=== PATIENT | male | born 1945 | race Caucasian/White ===

== ENCOUNTER → 2016-08-17 | Outpatient (CLI) | payer OTHER ==
[~2016-08-17] MED LIST: ACET-1325; ASPI81TA82 PO; CHOL1000 PO; DABI150C PO; FAMO20TA11 PO; LEVO-14 PO; LISI5TAB PO; METO25TA56 PO; MULT-506 PO; OMEG10007 PO; PRDFOPS; PRED1SUS3 OPR; REGADENOSON 0.4 MG/5 ML SYR ONE; ROSU40TA PO; TOBR0.3S4
--- NOTE | 2016-08-17 13:04 | DIAGNOSTIC IMAGING REPORT ---
ULTRASOUND OF THE ABDOMINAL AORTA CLINICAL HISTORY: Atherosclerosis. COMPARISON STUDY: Abdominal CT dated 01/22/2014. TECHNIQUE: Multiple brunson scale, color Doppler, and spectral Doppler sonograms of the abdominal aorta and iliac arteries are performed. Images are reviewed in the transverse and longitudinal planes. FINDINGS: There is advanced echogenic shadowing atherosclerotic calcification and irregularity noted throughout the abdominal aorta. The abdominal aorta is ectatic. The proximal abdominal aorta measures 1.8 x 2.2 cm (AP times transverse), the mid abdominal aorta measures 3.0 x 2.9 cm, and the distal abdominal aorta measures 2.4 x 2.1 cm. The right common iliac artery measures up to 1.4 cm and the left common iliac artery measures up to 1.3 cm. Normal flow and spectral Doppler waveforms are seen within the aorta with velocities measuring up to 82 cm/s. IMPRESSION: There is advanced atherosclerotic calcification and ectasia of the abdominal aorta. See above. Electronically signed by: Eduin Dennis M.D. 08/17/2016 1:02 PM Dictated Date/Time: 08/17/2016 12:59 PM
--- NOTE | 2016-08-18 02:28 | MYOCARDIAL PERFUSION SCAN ---
ORDERING PHYSICIAN: Dr. Jacoby Rollins. PRIMARY CARE PHYSICIAN: Dr. Jamison Zhang. TIME: 1910. PROCEDURE: 1. Myocardial perfusion study performed in multiple views/images. 2. Lexiscan pharmacologic stress ECG. INDICATIONS: CAD. CONSENT: Informed written consent was obtained. PROCEDURAL DETAILS: For the stress portion of the study, Lexiscan 0.4 mg was intravenously administered over 10-15 seconds, followed by saline flush. This was followed with 31.2 mCi of technetium-99m Cardiolite injected intravenously at 11:40 a.m. on 08/17/2016. Thirty minutes following the injection, imaging of the heart was performed in multiple projections. For the rest portion of the study, 10.6 mCi of technetium-99m Cardiolite was injected intravenously at 10:00 a.m. on the same day. One hour following the injection, imaging of the heart was performed in the same projections. LEXISCAN ECG STRESS: Baseline ECG demonstrated atrial fibrillation at 75 beats per minute. Lexiscan ECG demonstrated no significant ST changes. No significant pause. No chest pain reported. Maximum heart rate was 100 beats per minute, representing 66% maximum predicted heart rate. Resting blood pressure was 118/85 mmHg. Maximum blood pressure was 132/81 mmHg. FINDINGS: Rotating raw imaging demonstrated attenuation artifact from the patient's left arm. He was unable to raise his arms above his head. This appeared to affect the lateral wall and basal segments of the heart. There was mild motion artifact in both the stress and rest imaging. Heart size appeared normal. Myocardial perfusion demonstrated a small area of mildly reduced uptake involving the mid to distal anterior and mid to distal anteroseptal wall segments, which was reversible compared to rest imaging. There was a small area of mildly reduced uptake in the distal lateral wall and distal anterolateral wall segments, which was also reversible in rest imaging. There was a small area of mildly reduced uptake involving the inferior wall and inferolateral wall segments from base to apex. This was fixed at the base but otherwise appeared reversible. Ejection fraction was 51%. Wall motion demonstrated akinesis of the inferior/inferolateral basal segments. IMPRESSION: 1. Abnormal myocardial perfusion study suggesting a small area of ischemia involving the mid to distal anterior and anteroseptal freed, small area of the distal lateral and anterolateral wall, and mid to apical inferior and inferolateral wall segments. 2. Small basal inferior/inferolateral infarct suggested. 3. Low normal left ventricular systolic function. Estimated EF 51%. 4. Wall motion suggested akinesis of the inferior and inferolateral basal segment. 5. No chest pain reported. 6. Nondiagnostic Lexiscan ECG.
== END | disposition home or self-care (01) ==
LOC: C.NUCL 08:57
PROVIDERS: ATTEND Internal Medicine Clinical Cardiac Electrophysiology
DX: I25.10 Atherosclerotic heart disease of native coronary artery without angina pectoris (principal); I77.811 Abdominal aortic ectasia

== ENCOUNTER → 2016-10-18 | Outpatient (CLI) | payer OTHER ==
[~2016-10-18] MED LIST changes: -REGADENOSON 0.4 MG/5 ML SYR ONE
[2016-10-18 12:43] LABS: BLOOD UREA NITROGEN 18 mg/dl (7-18)
== END | disposition home or self-care (01) ==
LOC: C.LAB 11:38
PROVIDERS: ATTEND Psychiatry & Neurology Neurology
DX: Z00.00 Encounter for general adult medical examination without abnormal findings (principal); P14.0 Erb's paralysis due to birth injury

== ENCOUNTER → 2016-10-23 | Outpatient (CLI) | payer OTHER ==
[~2016-10-23] MED LIST changes: +GADAVIST IV PRN
--- NOTE | 2016-10-23 14:41 | DIAGNOSTIC IMAGING REPORT ---
MRI OF THE CHEST WITH AND WITHOUT CONTRAST BRACHIAL PLEXUS STUDY CLINICAL HISTORY: Erb Duchenne brachial plexus injury. COMPARISON STUDY: MRI of the cervical spine August 26, 2014. TECHNIQUE: Utilizing a 1.5 Mee magnet and dedicated coil, multiplanar, multi echo imaging of the lower neck and upper chest with specific attention to the left brachial plexus was performed pre and postcontrast administration. Injection of 10 cc of Gadavist IV was uneventful. FINDINGS: There is marked asymmetric atrophy of the left pectoralis, deltoid, supraspinatus, infraspinatus, teres minor and subscapularis muscles. No muscular edema is present. No mass is shown on this examination within the region of the left brachial plexus. No lower cervical or upper thoracic adenopathy is identified. No suspicious marrow replacement is identified. This exam is mildly compromised by artifact. Multilevel degenerative disc disease within the cervical spine is suboptimally assessed on this exam but most pronounced at C5-C6 and C6-C7 where there is at least moderate multilevel central canal stenosis with indentation upon the ventral aspect of the cord. Note is made of a 1 cm T2 hyperintense abnormality within the left C7-T1 neural foramen which is unchanged and MRI of August 26, 2014. IMPRESSION: 1. Marked atrophy of the left pectoralis, deltoid, supraspinatus, infraspinatus, teres minor and subscapularis muscles which suggests old denervation injury. 2. No mass along the course of the left brachial plexus. 3. Moderate to severe multilevel degenerative disc disease within the lower cervical spine which is suboptimally assessed on this exam. At least moderate multilevel central canal stenosis at C5-C6 and C6-C7. 4. 1 cm T2 hyperintense abnormality within left C7-T1 neural foramen. This statistically reflects a perineural cyst although an old avulsed nerve root could appear similar. Electronically signed by: Akbar Arellano M.D. 10/23/2016 2:39 PM Dictated Date/Time: 10/23/2016 11:54 AM
== END | disposition home or self-care (01) ==
LOC: C.MRI 10:06
PROVIDERS: ATTEND Psychiatry & Neurology Neurology
DX: P14.0 Erb's paralysis due to birth injury (principal); M50.30 Other cervical disc degeneration, unspecified cervical region; M48.02 Spinal stenosis, cervical region; R93.7 Abnormal findings on diagnostic imaging of other parts of musculoskeletal system

== ENCOUNTER → 2016-11-02 | Outpatient (CLI) | payer OTHER ==
--- NOTE | 2016-11-02 12:17 | DIAGNOSTIC IMAGING REPORT ---
CERVICAL SPINE MRI WITH AND WITHOUT CONTRAST CLINICAL HISTORY: 71-year-old male presenting with LEFT ARM NUMBNESS, ERB DUCHENNE BRACHIAL PLEXUS. TECHNIQUE: Multiplanar multisequence MRI of the cervical spine was performed both before and after the use of intravenous contrast. COMPARISON: 08/26/2014. FINDINGS: Stable to slightly progressed multilevel degenerative changes in the mid to lower cervical affecting C4-C7. As on prior exam, disc osteophyte complexes are noted from C4-5 through C6-7 with effacement of the thecal sac most severely at C5-6. Mild vertebral body height loss from C4 through C7. Overall alignment is anatomic. Mild intervertebral disc height loss at C5-6 and to a lesser extent at the adjacent levels. No abnormal increased T2 signal intensity within the intervertebral disc spaces or bone marrow. No abnormal enhancement on postcontrast imaging. Mild diffuse thickening of the ligamentum flavum. In combination with uncovertebral hypertrophy and disc osteophyte complexes, neural foraminal narrowing results to varying degrees as described below: C2-3: Normal. C3-4: Moderate right neural foraminal narrowing. C4-5: Left greater than right moderate bilateral neural foraminal narrowing. Disc osteophyte complex causes eccentric left-sided effacement of the ventral thecal sac and contouring of the left anterior aspect of the spinal cord. C5-6: Severe bilateral neural foraminal narrowing, stable to slightly increased. Disc osteophyte complex causes complete effacement of the CSF at this level with flattening of the spinal cord as on prior exam. C6-7: Moderate bilateral neural foraminal narrowing, which may have progressed the prior exam. Disc osteophyte complex causes median effacement of the ventral thecal sac with contouring of the anterior medial spinal cord. C7-T1: Normal. Perineural cyst present on the left. Spinal cord maintains normal signal intensity despite impingement at C5-6. Mild atrophy of the spinal cord at this level may be present. Visualized portion of the brain parenchyma is normal. Paraspinal soft tissues normal. IMPRESSION: 1. Multilevel degenerative changes from C4 to C7 secondary to disc osteophyte complexes, uncovertebral hypertrophy, and ligamentum flavum thickening. This results in varying degrees of neural foraminal narrowing most severe at C5-6 further described above. 2. Spinal canal narrowing most severe at C5-6 further described above. Electronically signed by: Dain Beck 11/02/2016 12:16 PM Dictated Date/Time: 11/02/2016 11:52 AM
--- NOTE | 2016-11-02 12:52 | DIAGNOSTIC IMAGING REPORT ---
BRAIN COMBO HISTORY:71 yearsMaleLEFT ARM NUMBNESS, ERB DUCHENNE BRACHIAL PLEXUS COMPARISON: MRI of the brain 03/20/2013. TECHNIQUE: Multiple planar multisequence MRI of the brain was obtained both with and without the use of 9.7 mL Gadavist IV contrast. FINDINGS: There is no restricted diffusion to suggest acute ischemia. The midline structures including the corpus callosum, optic chiasm, brainstem and pituitary gland appear unremarkable on the sagittal T1 sequence. No cerebellar tonsillar herniation. Uncovertebral spurring of the imaged cervical spine. No acute intracranial hemorrhage, midline shift, hydrocephalus or mass. Scattered areas of T2 prolongation are present within the periventricular white matter of the cerebral hemispheres bilaterally similar from comparison study dated 03/20/2013. Flow voids at the level the skull base appear normal. No abnormal enhancement is seen. There is minimal right maxillary and ethmoid sinus disease. IMPRESSION: 1. No acute intracranial abnormality. Negative for acute ischemia or abnormal enhancement. 2. Scattered areas of T2 prolongation within the periventricular white matter appears unchanged from 03/20/2013 and suggests mild chronic microvascular ischemic changes. The above report was generated using voice recognition software. It may contain grammatical, syntax or spelling errors. Electronically signed by: Indra Tejada 11/02/2016 12:50 PM Dictated Date/Time: 11/02/2016 12:45 PM
== END | disposition home or self-care (01) ==
LOC: C.MRIBC 09:24
PROVIDERS: ATTEND Psychiatry & Neurology Neurology
DX: P14.0 Erb's paralysis due to birth injury (principal); R20.0 Anesthesia of skin

== ENCOUNTER → 2016-12-06 | Outpatient (CLI) | payer OTHER ==
[~2016-12-06] MED LIST changes: -GADAVIST IV PRN
[2016-12-06 17:52] LABS: HEMATOCRIT 46.8 % (42-52); MEAN CELL VOLUME 91.1 fL (80-100); MEAN CORPUSCULAR HEMOGLOBIN 32.1 pg (25-34); MEAN CORPUSCULAR HGB CONC 35.3 g/dl (32-36); MEAN PLATELET VOLUME 10.1 fL (7.4-10.4); PLATELET COUNT 185 K/uL (130-400); RED BLOOD COUNT 5.14 M/uL (4.7-6.1); WHITE BLOOD COUNT 5.76 K/uL (4.8-10.8)
[2016-12-06 17:59] LABS: ALT/SGPT 35 U/L (12-78); AST/SGOT 18 U/L (15-37); BLOOD UREA NITROGEN 14 mg/dl (7-18); BUN/CREATININE RATIO 11.9 (10-20); CALCIUM 9.5 mg/dl (8.5-10.1); CARBON DIOXIDE 27 mmol/L (21-32); CHLORIDE 106 mmol/L (98-107); GLUCOSE 101 mg/dl (70-99); POTASSIUM 4.4 mmol/L (3.5-5.1); SODIUM 139 mmol/L (136-145)
[2016-12-06 18:05] LABS: ALB/GLOB RATIO 1.3 (0.9-2); ALKALINE PHOSPHATASE 57 U/L (45-117); CHOLESTEROL 169 mg/dl (0-200); CHOLESTEROL/HDL RATIO 3.3; HDL CHOLESTEROL 52 mg/dl; LDL CHOLESTEROL CALCULATED 91 mg/dl; TRIGLYCERIDES 129 mg/dl (0-150); VERY LOW DENSITY LIPOPROT CALC 26 mg/dl
== END | disposition home or self-care (01) ==
LOC: C.LABBFT 10:33
PROVIDERS: ATTEND Internal Medicine
DX: I25.10 Atherosclerotic heart disease of native coronary artery without angina pectoris (principal); Z12.5 Encounter for screening for malignant neoplasm of prostate

== ENCOUNTER → 2017-04-18 | Outpatient (CLI) | payer OTHER ==
--- NOTE | 2017-04-18 12:46 | DIAGNOSTIC IMAGING REPORT ---
CT LUNG SCREENING, LOW DOSE WITH COMPUTER-AIDED DETECTION (CAD) CLINICAL HISTORY: 71 years-old Male presents for a screening study with history of tobacco abuse. Pulmonary nodules measuring up to 3 mm seen on comparison study COMPARISON STUDY: Low-dose lung CT 03/20/2016, chest MR 10/23/2016. CT DOSE: 77.10 mGycm TECHNIQUE: Low-dose helical CT was acquired without intravenous contrast from lung apices to bases and reconstructed at 2.5 mm every 2 mm. CAD was utilized for this study. A dose lowering technique was utilized adhering to the principles of ALARA. FINDINGS: No definite dominant thyroid nodule identified. Mild fusiform dilation of the ascending thoracic aorta redemonstrated, 4.3 x 4.1 cm which is unchanged. There is mild/moderate atherosclerosis of the aorta. Coronary arterial disease. Heart size is within normal limits without large pericardial effusion identified. No definite pathologic adenopathy identified. There is redemonstration of atrophy involving the left pectoralis and left shoulder musculature, better seen and described on comparison chest MR 10/23/2016. There is no pneumothorax, pleural effusion or focal airspace consolidation. No evidence of suggest pulmonary edema. No significant emphysematous changes are seen. There is a punctate calcified granuloma seen within the lateral segment right middle lobe. 3 mm. Fissural lymph node is seen on image 147 series 3 on the right. 4 mm solid nodule of the right lower lobe as seen on image 171 series 3, unchanged from comparison. 3 mm nodule of the right upper lobe on image 103 series 3 is also unchanged. No new or enlarging pulmonary nodules. Several calcified granulomas are noted. 2 mm subpleural nodule of the left lower lobe seen on image 229 series 3, unchanged. Linear filling defects are noted within the distal portion of the left mainstem bronchus and bronchi of the lingula and left lower lobe as seen on image 124 series 3 with additional debris noted within the trachea. There is decreased transverse dimension of the trachea which is unchanged. Imaged upper abdominal structures demonstrate no gross abnormality. Bones appear intact. Multilevel endplate degenerative changes and facet arthropathy throughout the spine. IMPRESSION: 1. A few scattered solid pulmonary nodules bilaterally with largest measuring up to 4 mm within the right lower lobe. These are unchanged from comparison study 03/20/2016. 2. Mild layering debris within the distal trachea and bronchi as above. Decreased transverse dimension of the trachea suggests stable sheath trachea. 3. No pathologic adenopathy identified. 4. Unchanged mild fusiform dilation of the ascending thoracic aorta, 4.3 cm. 5. Prior granulomatous disease. CAD FINDINGS: Overall Lung RADS Category: 1 Lung RADS Management Recommendation: Continue annual lung cancer screening. Lung RADS Follow Up Date: 2018-04-18 The above report was generated using voice recognition software. It may contain grammatical, syntax or spelling errors. Electronically signed by: Indra Tejada M.D. 04/18/2017 12:45 PM Dictated Date/Time: 04/18/2017 12:21 PM
== END | disposition home or self-care (01) ==
LOC: C.CTS 10:56
PROVIDERS: ATTEND Internal Medicine
DX: Z12.2 Encounter for screening for malignant neoplasm of respiratory organs (principal); R91.8 Other nonspecific abnormal finding of lung field; Z87.891 Personal history of nicotine dependence

== ENCOUNTER → 2017-12-09 | Outpatient (CLI) | payer OTHER ==
[2017-12-09 17:45] LABS: ALBUMIN 3.9 gm/dl (3.4-5.0); ALKALINE PHOSPHATASE 51 U/L (45-117); ALT/SGPT 32 U/L (12-78); AST/SGOT 17 U/L (15-37); BLOOD UREA NITROGEN 19 mg/dl (7-18); CALCIUM 8.7 mg/dl (8.5-10.1); CARBON DIOXIDE 26 mmol/L (21-32); CHOLESTEROL 137 mg/dl (0-200); CREATININE 1.38 mg/dl (0.60-1.40); GLUCOSE 92 mg/dl (70-99); LDL CHOLESTEROL CALCULATED 44 mg/dl; POTASSIUM 4.3 mmol/L (3.5-5.1); SODIUM 138 mmol/L (136-145); TOTAL PROTEIN 6.8 gm/dl (6.4-8.2)
[2017-12-09 18:21] LABS: HEMATOCRIT 39.6 % (42-52); HEMOGLOBIN 13.3 g/dL (14.0-18.0); MEAN CELL VOLUME 90.8 fL (80-100); MEAN CORPUSCULAR HEMOGLOBIN 30.5 pg (25-34); MEAN CORPUSCULAR HGB CONC 33.6 g/dl (32-36); MEAN PLATELET VOLUME 10.4 fL (7.4-10.4); PLATELET COUNT 188 K/uL (130-400); RED CELL DISTRIBUTION WIDTH CV 12.8 % (11.5-14.5); RED CELL DISTRIBUTION WIDTH SD 42.1 fL (36.4-46.3); WHITE BLOOD COUNT 7.18 K/uL (4.8-10.8)
== END | disposition home or self-care (01) ==
LOC: C.LABBFT 13:45
PROVIDERS: ATTEND Internal Medicine
DX: Z12.5 Encounter for screening for malignant neoplasm of prostate (principal); I25.10 Atherosclerotic heart disease of native coronary artery without angina pectoris

== ENCOUNTER → 2017-12-13 | Outpatient (CLI) | payer OTHER ==
[2017-12-13 17:11] LABS: BASO % 0.7 %; BASO ABS # 0.04 K/uL (0-0.2); EOS % 7.6 %; EOS ABS # 0.42 K/uL (0-0.5); HEMATOCRIT 42.4 % (42-52); HEMOGLOBIN 14.4 g/dL (14.0-18.0); IG# 0.02 K/uL (0.00-0.02); LYMPH % 36.8 %; LYMPH ABS # 2.03 K/uL (1.2-3.4); MEAN CORPUSCULAR HEMOGLOBIN 30.6 pg (25-34); MEAN PLATELET VOLUME 10.4 fL (7.4-10.4); MONO % 14.2 %; MONO ABS # 0.78 K/uL (0.11-0.59); NEUT % 40.3 %; NEUT ABS # 2.22 K/uL (1.4-6.5); PLATELET COUNT 190 K/uL (130-400); RED CELL DISTRIBUTION WIDTH CV 12.8 % (11.5-14.5); RED CELL DISTRIBUTION WIDTH SD 41.9 fL (36.4-46.3); WHITE BLOOD COUNT 5.51 K/uL (4.8-10.8)
== END | disposition home or self-care (01) ==
LOC: C.LABBFT 13:42
PROVIDERS: ATTEND Internal Medicine
DX: D64.9 Anemia, unspecified (principal)